=== PATIENT | female | born 1990 | race Asian ===

== ENCOUNTER → 2024-11-18 15:04 | Outpatient (REF) | payer OTHER, SELFPAY | LOC: EMG 15:04 | PROVIDERS: ATTENDING PHYSICIAN Physician Assistant Surgical; FAMILY PHYSICIAN Internal Medicine | DX: M25.512 Pain in left shoulder (principal); G83.24 Monoplegia of upper limb affecting left nondominant side | CPT/HCPCS: 95886; 95909 ==